=== PATIENT | female | born 1985 | race Caucasian/White ===

== ENCOUNTER 2025-08-12 13:50 | Outpatient (CLI) | payer BC | END 2025-08-12 13:51 | disposition home or self-care (01) | LOC: CSHMAMMO 13:50 | PROVIDERS: ATTEND Advanced Practice Midwife | DX: Z12.31 Encounter for screening mammogram for malignant neoplasm of breast (principal); N64.89 Other specified disorders of breast | CPT/HCPCS: 77063; 77067 ==